=== PATIENT | male | born 1990 ===

== ENCOUNTER 2025-07-04 18:15 | Emergency (ER) | payer SELFPAY | END 2025-07-04 19:32 | disposition home or self-care (01) | LOC: SUPCPDRO 18:15 → KA.ED 18:15 | DX: S63.502A Unspecified sprain of left wrist, initial encounter (principal); I10 Essential (primary) hypertension; X58.XXXA Exposure to other specified factors, initial encounter | CPT/HCPCS: 73110-LT; 73130-LT; 99283 ==